=== PATIENT | male | born 1940 | race Caucasian/White ===

== ENCOUNTER 2024-06-22 15:33 | Emergency (ER) | payer MEDICARE, OTHER ==
[~2024-06-22] VITALS: Ht 165.1 cm; Wt 65.8 kg
[~2024-06-22 15:33] MED LIST: Advil200 M1; LANS30EC; LANS30EC PO; LANS30PKT; LORA10ER PO; ZYRTEC10 M2
[2024-06-22] MEDS ORDERED: Triamcinolone Inj Susp 40 MG / ML 1ML Vial IM ONE (16:25)
[2024-06-22 16:57] VITALS: BP 112/70
== END 2024-06-22 17:01 | disposition home or self-care (01) ==
LOC: ER 15:33
DX: L25.9 Unspecified contact dermatitis, unspecified cause (principal); Z88.0 Allergy status to penicillin; Z79.1 Long term (current) use of non-steroidal anti-inflammatories (NSAID); Z79.899 Other long term (current) drug therapy
CPT/HCPCS: 96372; 99282-25; J3301